=== PATIENT | male | born 1965 | race Caucasian/White ===

== ENCOUNTER 2023-06-07 14:19 | Emergency (ER) | payer MEDICAID ==
[~2023-06-07] VITALS: Ht 170.2 cm; Wt 113.6 kg
[~2023-06-07 14:19] MED LIST: GABAPENTIN; HYDR-4833; MORP-109
[2023-06-07] MEDS ORDERED: HYDROmorphone HCL 2 MG/ML VL/or syr IM ONE (14:30)
[2023-06-07] MEDS ORDERED: ONDANSETRON ODT 4 MG TAB PO ONE (14:30)
[2023-06-07 15:02] LABS: Basophils # (auto) 0.1 10 ^3/uL (0-0.2); Basophils % (auto) 0.4 % (0.0-2.0); Eosinophils # (auto) 0.5 10 ^3/uL (0-0.8); Eosinophils % (auto) 3.3 % (0.0-7.0); Hematocrit 46.3 % (41.0-53.0); Hemoglobin 15.9 g/dL (13.5-17.5); Lymphocytes % (auto) 14.4 % (10.0-50.0); Mean Corpuscular Hemoglobin 33.1 pg (28.0-32.0); Mean Corpuscular Hgb Conc. 34.3 g/dL (32.0-36.0); Mean Corpuscular Volume 96.5 fL (80.0-100.0); Monocytes # (auto) 1.7 10 ^3/uL (0-1.3); Monocytes % (auto) 12.4 % (0.0-12.0); Neutrophils # (auto) 9.7 10 ^3/uL (1.6-8.6); Neutrophils % (auto) 69.5 % (37.0-80.0)
[2023-06-07 15:40] LABS: Potassium 4.2 mmol/L (3.5-5.1)
[2023-06-07 15:47] LABS: Albumin 3.5 g/dL (3.4-5.0); BUN/Creatinine Ratio 12.1 (10.0-20.0); Bilirubin, Total 0.9 mg/dL (0.2-1.0); Calcium 8.6 mg/dL (8.5-10.1)
[2023-06-07 15:57] VITALS: TEMP 98.7
[2023-06-07 16:31] VITALS: BP 133/80; PULSE 69; RESP 18; O2SAT 95
[2023-06-07 16:37] LABS: Urine Bacteria FEW /hpf (None Seen); Urine Blood Negative /uL (Negative); Urine Clarity Clear (Clear); Urine Color Yellow (Yellow); Urine Mucus FEW (None Seen); Urine Protein, UAD 3+ (Negative); Urine Specific Gravity 1.034 (1.001-1.035); Urine WBC 2 /hpf (0 - 3)
[2023-06-07] MEDS ORDERED: ACET500T58 PO (16:50)
[2023-06-07] MEDS ORDERED: IBUP-1455 PO (16:50)
[2023-06-07] MEDS ORDERED: ZOFR4T PO (16:50)
== END 2023-06-07 17:13 | disposition home or self-care (01) ==
LOC: EDUNIT# 14:19 → EDBD 14:19 → ER 14:19
DX: A08.4 Viral intestinal infection, unspecified (principal); R91.1 Solitary pulmonary nodule; I10 Essential (primary) hypertension; E11.9 Type 2 diabetes mellitus without complications; F17.210 Nicotine dependence, cigarettes, uncomplicated; Z90.49 Acquired absence of other specified parts of digestive tract; Z79.899 Other long term (current) drug therapy; Z88.0 Allergy status to penicillin
CPT/HCPCS: 36415; 74176; 80053; 81001; 83605; 83690; 83880; 84484; 85025; 96372; 99285; J1170; Q0162